=== PATIENT | female | born 1945 | race Caucasian/White ===

== ENCOUNTER 2020-11-21 20:30 | Emergency (ER) | payer MEDICARE, OTHER ==
[2020-11-21 22:37] LABS: HEMOGLOBIN 14.9 gm/dl (12.3-15.3); RED BLOOD COUNT 5.41 M/UL (4.00-5.10); WHITE BLOOD COUNT 7.2 K/UL (4.5-11.0)
[2020-11-21 22:38] LABS: BUN/CREATININE RATIO 31 (0-10)
[2020-11-22] MEDS ORDERED: PEPCID40 MG PO (01:03)
== END 2020-11-22 01:15 | disposition home or self-care (01) ==
LOC: ER1 20:30
PROVIDERS: Student in an Organized Health Care Education/Training Program
DX: R10.13 Epigastric pain (principal); R11.0 Nausea; I10 Essential (primary) hypertension; E03.9 Hypothyroidism, unspecified; Z90.49 Acquired absence of other specified parts of digestive tract; Z88.0 Allergy status to penicillin
CPT/HCPCS: 80053; 81001; 82550; 82553; 83605; 83690; 83874; 84484; 85025; 93005; 96365; 96366; 96375; 99284; J2405; Q9967

== ENCOUNTER → 2020-12-26 | Outpatient (CLI) | payer MEDICARE, OTHER ==
[~2020-12-26] MED LIST: PEPCID40 MG PO
== END ==
LOC: KOH-I 12:25
DX: M72.2 Plantar fascial fibromatosis (principal); M19.071 Primary osteoarthritis, right ankle and foot
CPT/HCPCS: 73630

== ENCOUNTER → 2021-02-27 | Outpatient (CLI) | payer MEDICARE, OTHER | LOC: KOH-I 15:48 | DX: M54.12 Radiculopathy, cervical region (principal); M47.812 Spondylosis without myelopathy or radiculopathy, cervical region | CPT/HCPCS: 72040 ==

== ENCOUNTER → 2021-05-10 | Day surgery (SDC) | payer MEDICARE, OTHER ==
[~2021-05-10] MED LIST changes: +AMLODIPINE BESYL5 MG PO; +HYDROCHLOROTH12.5 M1 PO; +KLOR-CON M1010 MEQ PO; +LEVOTHYROXINE50 MCG PO; +PRAVASTATIN SOD20 MG PO; +PROTONIX 40 MG40 M1 PO
== END | disposition home or self-care (01) ==
LOC: OR 06:29
DX: K21.9 Gastro-esophageal reflux disease without esophagitis (principal); K31.A0 Gastric intestinal metaplasia, unspecified; K31.9 Disease of stomach and duodenum, unspecified; I10 Essential (primary) hypertension; E78.5 Hyperlipidemia, unspecified; E11.9 Type 2 diabetes mellitus without complications; E03.9 Hypothyroidism, unspecified; M19.90 Unspecified osteoarthritis, unspecified site; Z79.899 Other long term (current) drug therapy; Z86.010 Personal history of colon polyps; Z86.16 Personal history of COVID-19; Z88.0 Allergy status to penicillin; Z88.1 Allergy status to other antibiotic agents; Z88.8 Allergy status to other drugs, medicaments and biological substances; Z82.49 Family history of ischemic heart disease and other diseases of the circulatory system; Z80.42 Family history of malignant neoplasm of prostate
CPT/HCPCS: J2704; J7030

== ENCOUNTER → 2021-08-31 | Outpatient (CLI) | payer MEDICARE, OTHER | LOC: KOH-I 12:00 | DX: R31.9 Hematuria, unspecified (principal); R10.10 Upper abdominal pain, unspecified | CPT/HCPCS: 74176 ==